=== PATIENT | female | born 1960 | race Caucasian/White ===

== ENCOUNTER → 2020-02-12 | Outpatient (CLI) | payer OTHER ==
--- NOTE | 2020-02-12 16:27 | EXE ---
[place] [address] STRESS ECHOCARDIOGRAM Name: GUICHO HEAD Room: [facility]#: [id number] Admission: 02/12/20 Attend Phys: Reza Sotelo, Discharge: Date of : 56 Date of Service: 02/12/20 1625 Report #: [id number] THIS REPORT FOR: cc: Tasneem Bryant MD, Lin W. MD Holkins, John M. MD [facility] ~ APPROVED REPORT Study performed: 02/12/2020 15:21:57 Exam: Stress Echocardiogram Indication: Chest pain , Dyspnea Patient Location: Out-Patient Stress Nurse: Rcahell Zhou RN Supervising Physician: Philip Wasserman MD Status: routine Ht: 5 ft 7 in HR: 80 bpm BP: 128/71 mmHg Rhythm: NSR Medical History Allergies: No known drug allergies Cardiac Risk Factors: FHX of CAD, Tobacco History (Former) Procedure The patient underwent an Exercise Stress Test using the Luis Protocol. Blood pressure, heart rate, and EKG were monitored. An Echocardiogram was performed by industrial machine system technician in four stages in quad fashion. At peak stress, four selected images were obtained and placed side by side with resting images for comparison. Stress Test Details Stress Test: Exercise stress testing was performed using a Luis protocol. HR Resting HR: 80 bpm Max Heart Rate (APMHR): 159 bpm Max HR Achieved: 167 bpm Target HR (85% APMHR): 135 bpm % of APMHR: 105 Recovery HR: 92 bpm HR response to stress: Normal HR response [place] [address] STRESS ECHOCARDIOGRAM Name: GUICHO HEAD Room: [facility]#: [id number] Admission: 02/12/20 Attend Phys: Reza Sotelo, Discharge: Date of : 56 Date of Service: 02/12/20 1625 Report #: [id number] Resting BP: 128/71 mmHg Max BP: 182/73 mmHg Recovery BP: 145/78 mmHg BP response to stress: Normal blood pressure response to stress. ECG Resting ECG: normal EKG Stress EC mm of st depression at peak exercise, gradually abating post exercise Clinical Reason for Termination: Maximal effort Exercise duration: 8 min sec Highest Stage Achieved: Stage 3: 3.4 mph at 14% grade. Exercise capacity: 10.13 METs Pre-Stress Echo The resting Echocardiogram showed normal left ventricular contractility with an estimated Ejection Fraction of about 55-60%. Normal wall motion in all segments on baseline images. Post-Stress Echo The stress Echocardiogram showed normal left ventricular contractility with an estimated Ejection Fraction of about >70%. Normal augmentation of wall motion in all segments on post stress images. Conclusion Clinical Response: Non-ischemic Exercise Capacity: Average Stress ECG Response: Indeterminant Stress Echo Images: Non-ischemic Other Information Study Quality: Good <ELECTRONICALLY SIGNED> By: Sabino Haney MD, [facility] 02/12/20 1625 24 24 Sabino Haney MD, FAC /INF
== END ==
LOC: M.CRD 14:40
DX: R07.2 Precordial pain (principal)

== ENCOUNTER → 2020-03-23 | Outpatient (CLI) | payer OTHER | LOC: M.LAB 07:13 | PROVIDERS: ATTEND Internal Medicine Gastroenterology | DX: Z01.818 Encounter for other preprocedural examination (principal); Z11.59 Encounter for screening for other viral diseases ==

== ENCOUNTER → 2020-07-21 | Outpatient (CLI) | payer OTHER ==
[~2020-07-21] VITALS: Ht 172.7 cm; Wt 68.0 kg
[2020-07-21] VITALS (9 sets, daily range): BP systolic 120–1199; BP diastolic 53–84
[~2020-07-21] MED LIST: PROTONIX40 M2 PO
[2020-07-21 10:00] LABS: HEMATOCRIT 40.1 % (37.0-47.0); HEMOGLOBIN 13.7 gm/dL (12.0-15.0); MCH 30.1 pg (26.0-34.0); MCHC 34.2 g/dL (28.0-37.0); MPV 7.6 fl. (7.2-11.1); RBC 4.55 mil/uL (4.20-5.00); RDW-CV 12.7 % (10.5-14.5); WBC 5.6 thou/uL (4.0-11.0)
[2020-07-21 10:17] LABS: CALCIUM 9.3 mg/dL (8.5-10.1); POTASSIUM 4.1 mmol/L (3.5-5.1)
[2020-07-21 10:21] LABS: ALBUMIN 3.9 g/dL (3.4-5.0); TOTAL BILIRUBIN 0.6 mg/dL (<0.1-1.0); TOTAL PROTEIN 7.5 g/dL (6.4-8.2)
[2020-07-21 10:27] LABS: APTT 26.8 Seconds (25.0-31.3); PROTIME 10.3 Seconds (9.20-11.50)
--- NOTE | 2020-07-21 14:05 | CARD ---
[address] [address] CARDIAC CATH REPORT Name: GUICHO HEAD Room: [facility]#: [id number] Admission: 07/21/20 Attend Phys: Reza Sotelo MD Discharge: Date of : 56 Report #: [id number] THIS REPORT FOR: //name// cc: Tasneem Bryant MD, Lin W. MD ~ APPROVED REPORT Study performed: 07/21/2020 10:17:48 Patient Details Patient Status: Out-Patient Room #: The patient is a 60 year-old female Event Personnel Reza Sotelo Mill Machinist, Liana Gleason RN RN, Bryson Holly RTR Scrub, Isabel Quesada RTR Monitor Procedures Performed Art Access - R radial artery Left Heart Cath w/or w/o Coronaries [id number] [facility] Hemostasis with Hemoband Indication Chest pain Admission/Lab Medications/Medications given during procedure Fentanyl IV 25 mcg, Midazolam (Versed) IV 1 mg, Lidocaine Subcut 5 ml, Oxygen Nasal cannula 2 l per min, 0.9% Sodium Chloride IV 75 ml per hr, Nitroglycerin IA 200 mcg, Verapamil IA 2.5 mg, Nitroglycerin IA 200 mcg, Verapamil IA 2.5 mg Procedure Narrative The patient was brought electively to the Cardiac Catheterization Laboratory and was prepped and draped in a sterile manner. The right wrist was infiltrated with 2% Lidocaine subcutaneous anesthesia. A Slender Glidesheath sheath was inserted into the right radial artery. Coronary angiography was performed using coronary diagnostic catheters. The right coronary system was accessed and visualized with a Diagnostic 6 Fr JR 4 catheter. The left coronary system was accessed and visualized with a Diagnostic 6 Fr JL 3.5 catheter. The left ventricle was accessed and visualized with a Diagnostic 6 Fr Pigtail catheter. Left ventricular/Aortic Valve gradient assessed via catheter pullback. Left ventriculogram was performed in ADEN projection. Closure device was deployed with a Fr Vasc-Band Reg 24cm. The patient tolerated the procedure well and there were no complications associated with the [place] [address] CARDIAC CATH REPORT Name: GUICHO HEAD Room: [facility]#: [id number] Admission: 07/21/20 Attend Phys: Rzea Sotelo MD Discharge: Date of : 56 Report #: [id number]. Intraoperative Conscious Sedation Sedation start time: 10:44 Case end Time: 10:53 Fentanyl 25 mcg Versed 1 mg Fluoro Time: 2.4 minutes Dose: DAP 25317 cGycm2 317 mGy Contrast Type and Amount: Visipaque 85 ml Diagnostic Cath Left Main The left main coronary artery is normal and bifurcates into a left anterior descending and circumflex coronary artery. LAD The left anterior descending coronary artery is normal in its proximal mid and distal portion. Diagonal 1 The first diagonal branch is normal. Diagonal 2 A small second diagonal branch is normal. Diagonal 3 A small third diagonal branch is normal. Circumflex The circumflex coronary artery is normal in its proximal mid and distal portions OM1 A large branch first obtuse marginal branch is normal. OM2 A moderate-sized branch second obtuse marginal branch is normal. Right Coronary The right coronary artery is normal in its proximal mid and distal portion. R PDA A large right PDA is normal. Left Ventriculography The left ventricle is normal in size with normal contractility. The left ventricular ejection fraction is estimated to be 65-70%. Left ventricular wall motion abnormalities are not present. Hemodynamics The aortic pressure is 141/69 mmHg with a mean of 99 mmHg. The left ventricular pressure is 194/-6 mmHg with a mean of mmHg. The left ventricular end diastolic pressure is 6 mmHg. Conclusion 1. Normal coronary arteries. 2. Normal left ventricular systolic function. 3. Normal left ventricular end-[place] [address] CARDIAC CATH REPORT Name: GUICHO HEAD Room: [facility]#: [id number] Admission: 07/21/20 Attend Phys: Reza Sotelo MD Discharge: Date of : 56 Report #: [id number] Recommendations 1. Continue current medical management. <ELECTRONICALLY SIGNED> By: Reza Sotelo MD, [place] 07/21/20 1405 04 1405Reza Sotelo MD, ODES[place] /INF
== END ==
LOC: M.INT 09:12 → EDSTATUS 10:30 → M.SUR 10:30 → M.CL 10:30
PROVIDERS: ATTEND Internal Medicine Cardiovascular Disease
DX: R07.9 Chest pain, unspecified (principal); Z87.891 Personal history of nicotine dependence; Z72.89 Other problems related to lifestyle; Z82.49 Family history of ischemic heart disease and other diseases of the circulatory system; Z79.899 Other long term (current) drug therapy; Z20.828 Contact with and (suspected) exposure to other viral communicable diseases

== ENCOUNTER → 2020-08-06 | Outpatient (CLI) | payer OTHER ==
[2020-08-06 07:37] LABS: ALBUMIN 3.5 g/dL (3.4-5.0); DIRECT BILIRUBIN 0.1 mg/dL (<0.1-0.3); TOTAL BILIRUBIN 0.5 mg/dL (<0.1-1.0)
== END ==
LOC: M.LAB 07:03 → M.ULTRA 07:30
PROVIDERS: ATTEND Internal Medicine Gastroenterology
DX: K21.9 Gastro-esophageal reflux disease without esophagitis (principal); K80.20 Calculus of gallbladder without cholecystitis without obstruction